=== PATIENT | female | born 1960 | race African-American/Black ===

== ENCOUNTER 2019-12-08 18:34 | Emergency (ER) | payer MEDICAID ==
[~2019-12-08] VITALS: Ht 160 cm; Wt 77.0 kg
[2019-12-08 23:32] LABS: BASOPHILS % 0.8 % (0.0-2.0); EOSINOPHILS % 2.1 % (0.0-5.0); HEMATOCRIT. 43.5 % (36.0-48.0); HEMOGLOBIN. 14.7 g/dL (12.0-16.0); LYMPHOCYTES % 24.6 % (20.0-50.0); MEAN CORPUSCULAR VOLUME 88.9 fL (81.0-99.0); MEAN PLATELET VOLUME 8.8 fl (7.4-10.4); MONOCYTES % 6.4 % (2.0-8.0); NEUTROPHILS % 66.1 % (40.0-76.0); PLATELET 262 x1000/uL (130-400); RED CELL DISTRIBUTION WIDTH 13.1 % (11.6-14.6)
[2019-12-09 00:44] LABS: PROTHROMBIN TIME 10.7 sec (9.6-11.0)
[2019-12-09 01:05] LABS: CHLORIDE 106 mEq/L (98-107)
[2019-12-09 01:25] VITALS: BP 138/76
== END 2019-12-09 01:52 | disposition home or self-care (01) ==
LOC: ER 18:34
DX: K92.2 Gastrointestinal hemorrhage, unspecified (principal); J45.909 Unspecified asthma, uncomplicated; Z90.710 Acquired absence of both cervix and uterus
CPT/HCPCS: 36415; 80053; 83605; 85025; 86850; 86900; 93005; 99285